=== PATIENT | female | born 1950 | race Caucasian/White ===

== ENCOUNTER 2016-11-26 09:22 | Day surgery (SDC) | payer MEDICARE, OTHER ==
[~2016-11-26] VITALS: Ht 162.6 cm; Wt 117.2 kg
[2016-11-26] MEDS ORDERED: METO5AMP PO (09:52)
[2016-11-26] MEDS ORDERED: LACTATED RINGERS 1,000 ML IV SCH (09:53)
[2016-11-26] MEDS ORDERED: METO25TA35 PO (09:59)
[2016-11-26] MEDS ORDERED: PARO40TA3 PO (09:59)
[2016-11-26] MEDS ORDERED: MELA3TAB2 PO (09:59)
[2016-11-26] MEDS ORDERED: RABE20TA18 PO (09:59)
[2016-11-26] MEDS ORDERED: ATOR20TA9 PO (09:59)
[2016-11-26] MEDS ORDERED: ZOLP12.54 PO (09:59)
[2016-11-26] MEDS ORDERED: DIAZ5TAB4 PO (09:59)
[2016-11-26] MEDS ORDERED: TOPI100T8 PO (09:59)
[2016-11-26] MEDS ORDERED: LEVO75TA5 PO (09:59)
[2016-11-26] MEDS ORDERED: ERGO500017 PO (09:59)
[2016-11-26] MEDS ORDERED: LIDOCAINE 1%, 2ML SQ PRN (10:00)
[2016-11-26 10:01] VITALS: BP 158/76
[2016-11-26] MEDS ORDERED: PROPOFOL 10 MG/ML, 20ML ONE (10:15)
[2016-11-26] MEDS ORDERED: ONDANSETRON 2MG/ML, 2ML ONE (10:15)
[2016-11-26] MEDS ORDERED: DEXAMETHASONE 4 MG/ML, 1ML ONE (10:15)
[2016-11-26] MEDS ORDERED: OXYcodone 5 MG/5 ML ORAL.SOL UDC PO PRN (10:30)
[2016-11-26] MEDS ORDERED: HYDROmorphone 1 MG/ML, 1ML IV PRN (10:30)
[2016-11-26] MEDS ORDERED: MEPERIDINE/PF 25MG/0.5ML IVPush PRN (10:30)
[2016-11-26] MEDS ORDERED: ALBUTEROL SULFATE 2.5 MG/3 ML NPPB PRN (10:30)
[2016-11-26] MEDS ORDERED: MIDAZOLAM 1 MG/ML, 2ML IV PRN (10:30)
[2016-11-26] MEDS ORDERED: ONDANSETRON 2MG/ML, 2ML IVPush PRN (10:30)
[2016-11-26] MEDS ORDERED: hydrALAzine 20 MG/ML, 1ML IV PRN (10:30)
[2016-11-26] MEDS ORDERED: PROMETHAZINE 25 MG/ML, 1ML IV PRN (10:30)
[2016-11-26] MEDS ORDERED: FENTANYL PF 100 MCG/2ML IV PRN (10:30)
[2016-11-26] MEDS ORDERED: LABETALOL 5MG/ML, 20ML IV PRN (10:30)
== END 2016-11-26 12:30 ==
LOC: OUT 09:22
PROVIDERS: ATTEND Internal Medicine Geriatric Medicine
DX: Z12.11 Encounter for screening for malignant neoplasm of colon (principal); K63.5 Polyp of colon; K29.50 Unspecified chronic gastritis without bleeding; K21.9 Gastro-esophageal reflux disease without esophagitis; K64.8 Other hemorrhoids; E03.9 Hypothyroidism, unspecified; E66.9 Obesity, unspecified; Z68.41 Body mass index [BMI] 40.0-44.9, adult; Z88.1 Allergy status to other antibiotic agents
CPT/HCPCS: 43239; 45380; 88305; 93005; J1100; J2405; J2704; J7120